=== PATIENT | female | born 1935 | race Caucasian/White ===

== ENCOUNTER → 2016-10-15 | Outpatient (CLI) | payer MEDICARE ==
--- NOTE | 2016-10-15 11:19 | MM ---
Reason for exam: follow-up at short interval from prior study. Last mammogram was performed 7 months ago. History: Patient is postmenopausal, has history of other cancer at age 78, and is nulliparous. Family history of breast cancer in mother at age 68. Took estrogen for 31 years. Physical Findings: Nurse did not find any significant physical abnormalities on exam. MG 3D Diag Mammo W/Cad LT CC, MLO, and LM view(s) were taken of the left breast. Prior study comparison: March 15, 2016, bilateral MG 3d screening mammo w/cad. April 05, 2014, bilateral MG screening mammo w CAD. There are scattered fibroglandular densities. Finding: There are typically benign round, diffuse, grouped calcifications in the left breast. There is a chronic nodularity in the left breast. There is no new dominant lesion. There is no discrete abnormality. These results were verbally communicated with the patient and result sheet given to the patient on 10/15/16. ASSESSMENT: Benign, BI-RAD 2 RECOMMENDATION: Routine screening mammogram of both breasts in 6 months. Back on schedule March 2017.
== END | disposition home or self-care (01) ==
LOC: RADMAMWWP 09:00
PROVIDERS: ATTEND Internal Medicine Geriatric Medicine
DX: R92.2 Inconclusive mammogram (principal)
CPT/HCPCS: G0206; G0279

== ENCOUNTER → 2017-11-21 | Outpatient (CLI) | payer MEDICARE ==
--- NOTE | 2017-11-21 15:27 | BD ---
EXAMINATION TYPE: Axial Bone Density DATE OF EXAM: 11/21/2017 COMPARISON: DEXA bone scan February 18, 2013 CLINICAL HISTORY: Osteoporosis per order. Height: 5 FT 1 IN Weight: 152 FRAX RISK QUESTIONS: Family History (Parent hip fracture): MOTHER Secondary Osteoporosis: 3. Menopause before 45: YES RISK FACTORS HISTORY OF: Active: YES Postmenopausal woman: TOTAL HYST AGE 37 Take estrogen and/or progesterone medications: TOOK HRT 31 YEARS How long: NO LONGER TAKES MEDICATIONS: Additional Medications: PANTOPRAZOLE, HYDROCHLOROTHIAZIDE, MONTELUKAST, LIPTITOR NOT TAKING EVERY DAY , ALBUTEROL, CENTRUM SILVER, ASPIRIN Additional History: EXAM MEASUREMENTS: Bone mineral densitometry was performed using the [employer] System. Bone mineral density as measured about the Lumbar spine is: ----- L1-L4(G/cm2): 1.386 T Score Values are as follows: ----- L2: 2.1 ----- L3: 1.8 ----- L4: 1.7 ----- L1-L4: 1.7 Bone mineral density has: INCREASED 2.7 % since study of: 2012 Bone mineral density about the R hip (g/cm2): 0.894 Bone mineral density about the L hip (g/cm2): 0.816 T Score values are as follows: -----R Neck: -1.0 -----L Neck: -1.6 -----R Total: -0.4 -----L Total: -0.3 Bone mineral density has: INCREASED 0.2 % since study of: 2012 IMPRESSION: Osteopenia (T Score between -2.5 and -1) at femoral neck level left hip remains present.. There remains slightly increased risk of fracture and the patient may be considered for treatment. Re-Screen 2-5 years. NOTE: T-SCORE=SD OF THE YOUNG ADULT MEAN.
--- NOTE | 2017-11-25 09:36 | MM ---
Reason for exam: screening (asymptomatic). Last mammogram was performed 1 year and 1 month ago. History: Patient is postmenopausal, has history of other cancer at age 78, and is nulliparous. Family history of breast cancer in mother at age 68. Took estrogen for 31 years. Physical Findings: A clinical breast exam by your physician is recommended on an annual basis and results should be correlated with mammographic findings. MG 3D Screening Mammo W/Cad Bilateral CC and MLO view(s) were taken. Prior study comparison: October 15, 2016, left breast MG 3d diag mammo w/cad LT. March 15, 2016, bilateral MG 3d screening mammo w/cad. There are scattered fibroglandular densities. Benign appearing bilateral calcifications. No suspicious abnormality. No significant changes when compared with prior studies. ASSESSMENT: Benign, BI-RAD 2 RECOMMENDATION: Routine screening mammogram of both breasts in 1 year.
== END | disposition home or self-care (01) ==
LOC: RADMAMWWP 13:24
PROVIDERS: ATTEND Internal Medicine Geriatric Medicine
DX: Z12.31 Encounter for screening mammogram for malignant neoplasm of breast (principal); M85.852 Other specified disorders of bone density and structure, left thigh
CPT/HCPCS: 77063; 77067; 77080

== ENCOUNTER → 2019-01-14 | Outpatient (CLI) | payer MEDICARE ==
--- NOTE | 2019-01-15 14:15 | MM ---
Reason for exam: screening (asymptomatic). Last mammogram was performed 1 year and 2 months ago. History: Patient is postmenopausal, has history of other cancer at age 78, and is nulliparous. Family history of breast cancer in mother at age 68 and breast cancer in sister at age 67. Took estrogen for 31 years. Physical Findings: A clinical breast exam by your physician is recommended on an annual basis and results should be correlated with mammographic findings. MG 3D Screening Mammo W/Cad Bilateral CC and MLO view(s) were taken. XCCM view(s) were taken of the left breast. Prior study comparison: November 21, 2017, bilateral MG 3d screening mammo w/cad. October 15, 2016, left breast MG 3d diag mammo w/cad LT. The breast tissue is heterogeneously dense. This may lower the sensitivity of mammography. Benign appearing bilateral calcifications. No suspicious abnormality. No significant changes when compared with prior studies. ASSESSMENT: Benign, BI-RAD 2 RECOMMENDATION: Routine screening mammogram of both breasts in 1 year.
== END ==
LOC: RADMAMWWP 09:18
PROVIDERS: ATTEND Internal Medicine Geriatric Medicine
DX: Z12.31 Encounter for screening mammogram for malignant neoplasm of breast (principal)
CPT/HCPCS: 77063; 77067

== ENCOUNTER → 2020-04-05 | Outpatient (CLI) | payer MEDICARE ==
--- NOTE | 2020-04-05 18:14 | BD ---
EXAMINATION TYPE: Axial Bone Density DATE OF EXAM: 04/05/2020 COMPARISON: 11/21/2017 CLINICAL HISTORY: Postmenopausal screening Height: 5 FT 1 IN Weight: 143 FRAX RISK QUESTIONS: Alcohol (3 or more units per day): NO Family History (Parent hip fracture): YES Glucocorticoids (More than 3mos): UNSURE (Ex: prednisone, prednisolone, methylprednisolone, dexamethasone, and hydrocortisone). History of Fracture in Adulthood:NO Secondary Osteoporosis: 1. Type 1 Diabetes: NO 2. Hyperthyroidism: NO 3. Menopause before 45: YES 4. Malnutrition: NO 5. Chronic liver disease: NO Rheumatoid Arthritis: NO Current Tobacco Use: NO RISK FACTORS HISTORY OF: Family History of Osteoporosis: NO Active: YES Diet low in dairy products/other sources of calcium: NO Postmenopausal woman: TOTAL HYST AGE 37 Take estrogen and/or progesterone medications: TOOK HRT FOR 31 YEARS NO LONGER Lost more than 2 inches in height since high school: NO MEDICATIONS: Additional Medications: PANTROPRAZOLE, HYDROCHLOROTHIAZIDE, MONTELUKAST, ALBUTEROL ,ASPIRIN Additional History: PT HAS ASTHMA USES INHALER DAILY EXAM MEASUREMENTS: Bone mineral densitometry was performed using the [employer] System. Bone mineral density as measured about the Lumbar spine is: ----- L1-L4(G/cm2): 1.368 T Score Values are as follows: ----- L2: 1.9 ----- L3: 1.9 ----- L4: 1.3 ----- L1-L4: 1.6 Bone mineral density has: DECREASED -1.1 % since study of: 2017 Bone mineral density about the R hip (g/cm2): 0.902 Bone mineral density about the L hip (g/cm2): 0.800 T Score values are as follows: -----R Neck: -1.0 -----L Neck: -1.7 -----R Total: -0.7 -----L Total: -0.5 Bone mineral density has: DECREASED -3.5 % since study of: 2017 IMPRESSION: Osteopenia (T Score between -2.5 and -1). There is slightly increased risk of fracture and the patient may be considered for treatment. Re-Screen 2-5 years. NOTE: T-SCORE=SD OF THE YOUNG ADULT MEAN.
--- NOTE | 2020-04-06 09:28 | MM ---
Reason for exam: screening (asymptomatic). Last mammogram was performed 1 year and 3 months ago. History: Patient is postmenopausal, has history of other cancer at age 78, and is nulliparous. Family history of breast cancer in mother at age 68 and breast cancer in sister at age 67. Took estrogen for 31 years. Physical Findings: A clinical breast exam by your physician is recommended on an annual basis and results should be correlated with mammographic findings. MG 3D Screening Mammo W/Cad Bilateral CC and MLO view(s) were taken. Prior study comparison: January 14, 2019, bilateral MG 3d screening mammo w/cad. November 21, 2017, bilateral MG 3d screening mammo w/cad. The breast tissue is heterogeneously dense. This may lower the sensitivity of mammography. Stable benign calcifications. There is no discrete abnormality. No significant changes when compared with prior studies. ASSESSMENT: Benign, BI-RAD 2 RECOMMENDATION: Routine screening mammogram of both breasts in 1 year.
== END | disposition home or self-care (01) ==
LOC: RADMAMWWP 08:14
PROVIDERS: ATTEND Internal Medicine Geriatric Medicine
DX: Z12.31 Encounter for screening mammogram for malignant neoplasm of breast (principal); M85.80 Other specified disorders of bone density and structure, unspecified site; M81.0 Age-related osteoporosis without current pathological fracture
CPT/HCPCS: 77063; 77067; 77080